=== PATIENT | male | born 1995 | race Caucasian/White ===

== ENCOUNTER 2018-12-23 12:41 | Emergency (ER) | payer MEDICAID, OTHER ==
[~2018-12-23] VITALS: Wt 80.0 kg
[2018-12-23 12:42] VITALS: BP 160/85; PULSE 62; RESP 20
--- NOTE | 2018-12-23 13:21 | ERD ---
ER Documentation Chief Complaint Chief Complaint ANXIETY HPI The patient is a 23-year-old male, presenting to the ER because of acute anxiety attack after eating at 11:30 PM today, he has a lot of stress in his life has similar symptoms previously, denies auditory/visual hallucination, suicidal/homicidal ideation. He denies neck pain, chest pain, dyspnea, abdominal pain, vomiting, dysuria, diarrhea. He does not smoke nor drink nor does illicit drug Past medical history: Anxiety Surgical history: None ROS All systems reviewed and are negative except as per history of present illness. Medications Home Meds Active Scripts Hydroxyzine Hcl* (Atarax*) 25 Mg Tab, 25 MG PO Q6H PRN for ANXIETY, #20 TAB Prov:GIANCARLO JO MD 12/23/18 Allergies Allergies: Coded Allergies: No Known Allergy (Unverified , 12/23/18) Physical Exam Vitals Vital Signs Date Temp Pulse Resp B/P (MAP) Pulse Ox O2 O2 Flow FiO2 Time Delivery Rate 12/23/18 98.5 62 20 160/85 99 12:42 (110) Physical Exam Const: No acute distress. Head: Atraumatic. Eyes: Normal Conjunctiva. ENT: Normal External Ears, Nose and Mouth. Neck: Full range of motion. No meningismus. Resp: Clear to auscultation bilaterally. Cardio: Regular rate and rhythm. Abd: Soft, non distended, normal bowel sounds, non tender. Skin: No petechiae or rashes. Back: No midline or flank tenderness. Ext: No cyanosis, or edema. Neur: Awake and alert. No focal deficit Psych: Very anxious Results 24 hrs Current Medications Medications Dose Sig/Mike Start Time Status Last (Trade) Ordered Route PRN Stop Time Admin Dose Reason Admin Lorazepam 1 mg ONCE ONCE 12/23/18 DC 12/23/18 (Ativan) PO 13:30 13:41 12/23/18 13:31 Procedures/MDM MEDICAL MAKING DECISION: The patient is a 23-year-old male, presenting with acute anxiety attack, was treated with Ativan 1 mg p.o. for acute anxiety with good response, is stable for outpatient follow-up The differential diagnoses considered include but are not limited to anxiety attack, panic attack, substance abuse Departure Diagnosis: Primary Impression: Anxiety attack Condition: Good Comments He was discharged with Atarax I discussed the findings with the patient. I advised the patient to follow-up w ith the primary physician in about 2-3 days, sooner if needed and return if any concern. Disclaimer: Inadvertent spelling and grammatical errors are likely due to EHR/dictation software use and do not reflect on the overall quality of patient care. Also, please note that the electronic time recorded on this note does not necessarily reflect the actual time of the patient encounter. GIANCARLO JO MD Dec 23, 2018 13:21
[2018-12-23] MEDS ORDERED: LORAZEPAM 1 MG TAB PO ONE (13:30)
[2018-12-23] MEDS ORDERED: HYDR-842 PO (15:53)
== END 2018-12-23 15:57 | disposition home or self-care (01) ==
LOC: E/R 12:41
DX: F41.9 Anxiety disorder, unspecified (principal)
CPT/HCPCS: Z7502; Z7610; 99283